=== PATIENT | male | born 1995 | race Caucasian/White ===

== ENCOUNTER 2016-12-09 12:42 | Emergency (ER) | payer OTHER ==
[~2016-12-09] VITALS: Ht 170.2 cm; Wt 66.2 kg
--- NOTE | 2016-12-09 13:13 | Emergency Room Report ---
History of Present Illness General Chief Complaint: Abdominal Pain Source: Patient Present Illness HPI 21-year-old male presents to the emergency department complaining of vomiting since this a.m. Patient reports while episodes of nonbloody vomit status post smoking marijuana last night. Patient states in the past he has had reaction of vomiting after marijuana use. Patient denies abdominal pain other than midepigastric 6/10 in severity during episodes of vomiting. Patient denies abdominal tenderness, recent travel, ill contacts, fevers, chills, past medical history, constipation, diarrhea. Denies CP, Palpitations, LOC, AMS, dizziness, Changes in Vision, Sensation, paresthesias, or a sudden severe headache. Allergies: Coded Allergies: No Known Allergies (Unverified , 12/09/16) Patient History Past Medical History: see triage record Past Surgical History: none Pertinent Family History: none Social History: Reports: drug use - THC Immunizations: UTD Reviewed Nursing Documentation: PMH: Agreed, PSxH: Agreed Nursing Documentation-PMH Past Medical History: No Stated History Review of Systems All Other Systems: negative except mentioned in HPI Physical Exam Vital Signs Date Time Temp Pulse Resp B/P (MAP) Pulse Ox O2 Delivery O2 Flow Rate FiO2 12/09/16 12:47 97.5 54 18 133/63 100 Room Air Sp02 EP Interpretation: reviewed, normal General Appearance: alert, GCS 15, non-toxic, mild distress Head: normocephalic, atraumatic Eyes: bilateral eye normal inspection, bilateral eye PERRL ENT: hearing grossly normal, normal pharynx, no angioedema, normal voice Neck: full range of motion Respiratory: lungs clear, normal breath sounds, speaking full sentences Cardiovascular #1: regular rate, rhythm, normal capillary refill Gastrointestinal: normal bowel sounds, non tender, soft, no guarding, no rebound, other - Negative Franklin signs, Negative MacBurney's sign, Negative Rosvigns Sign, Negative Psoas, No Peritoneal signs. Rectal: deferred Genitourinary: normal inspection, no CVA tenderness Musculoskeletal: back normal, gait/station normal, normal range of motion, non- tender, no calf tenderness Neurologic: alert, oriented x3, responsive, motor strength/tone normal, sensory intact, speech normal Psychiatric: judgement/insight normal, memory normal, mood/affect normal Skin: normal color, no rash, warm/dry, well hydrated Medical Decision Making PA Attestation Dr. Matias is my supervising Physician whom patient management has been discussed with. Diagnostic Impression: Primary Impression: Cyclical vomiting with nausea Qualified Codes: G43.A0 - Cyclical vomiting, not intractable ER Course 21-year-old male presents to the emergency department complaining of vomiting since this a.m. Patient reports while episodes of nonbloody vomit status post smoking marijuana last night. Patient states in the past he has had reaction of vomiting after marijuana use. Patient denies abdominal pain other than midepigastric 6/10 in severity during episodes of vomiting. Patient denies abdominal tenderness, recent travel, ill contacts, fevers, chills, past medical history, constipation, diarrhea. Denies CP, Palpitations, LOC, AMS, dizziness, Changes in Vision, Sensation, paresthesias, or a sudden severe headache. Ddx considered but are not limited to GE, colitis, acute appy, SBO, Cyclical vomiting Vital signs: pt. is afebrile, H&PE are most consistent with GE ORDERS: none required at this time, the diagnosis is clinical ED INTERVENTIONS: -1000 NS iv hydration -Capsacin Cream applied topically to the abdomen. -Zofran PO -Pt. able to tolerate oral fluids DISCHARGE: At this time pt. is stable for d/c to home. Will provide printed patient care instructions, and any necessary prescriptions. Care plan and follow up instructions have been discussed with the patient prior to discharge. Last Vital Signs Date Time Temp Pulse Resp B/P (MAP) Pulse Ox O2 Delivery O2 Flow Rate FiO2 12/09/16 12:47 97.5 54 18 133/63 100 Room Air Disposition: HOME, SELF-CARE Condition: Stable Scripts Ondansetron Odt* (ZOFRAN ODT*) 4 Mg Tab.rapdis 4 MG ORAL Q6H Y for Nausea & Vomiting, #15 TAB Prov: Vikki Ryan 12/09/16 Patient Instructions: Nausea and Vomiting, Adult Additional Instructions: Discontinue use of marijuana. Take medications as directed. Follow up with a Primary Care Provider in 3-5 days, even if your symptoms have resolved. --Please review list of primary care clinics, if you do not already have a primary care provider Return sooner to ED if new symptoms occur, or current symptoms become worse. - Please note that this Emergency Department Report was dictated using [employer] equipment operator technology software, occasionally this can lead to erroneous entry secondary to interpretation by the dictation equipment. Vikki Ryan Dec 09, 2016 13:13
[2016-12-09] MEDS ORDERED: Capsaicin 0.075% Cream TOPIC ONE (13:15)
[2016-12-09 13:31] VITALS: BP 138/62
[2016-12-09] MEDS ORDERED: ZOFRAN ODT4 MG ORAL (14:33)
[2016-12-09 15:47] VITALS: BP 122/68
== END 2016-12-09 15:50 | disposition home or self-care (01) ==
LOC: EMR 13:25
DX: G43.A0 Cyclical vomiting, in migraine, not intractable (principal); R11.0 Nausea
CPT/HCPCS: 96374; 96375; 99284; J2405; S0028